=== PATIENT | female | born 1990 | race Caucasian/White ===

== ENCOUNTER 2025-04-07 16:09 | Emergency (ER) | payer OTHER, SELFPAY ==
--- OUTSIDE RECORDS SUMMARY | 2025-04-07 16:13 | XMS_ITS | Clinical Summary ---
Author Organization [facility] Address [address] [place] [address] Care Team Providers Care Special Systems Technician Name Role Phone Aniya Tilley MD Primary Care Provider + Allergies No known active allergies Medications traZODone (DESYREL) 100 MG tabletIndicatio ns:CLAUDIA (generalized anxiety disorder) Take 1 tablet (100 mg total) by mouth nightly at bedtime. 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 90 capsule 5 03/16/20 25 Discontinu ed(Reorder ) traZODone (DESYREL) 50 MG tablet Take 1 tablet (50 mg total) by mouth nightly at bedtime. at bedtime 5 03/16/20 25 Discontinu ed(Reorder ) Active Problems Problem Noted Date Diagnosed Date No blood products 01/15/2025 Overview (01/15/2025): [place]. Declines blood products. CLAUDIA (generalized anxiety disorder) 01/15/2025 Overview (01/15/2025): - Acknowledges symptoms of depression and anxiety, including thoughts of self- harm, but does not intend to harm herself - Reports significant social anxiety - Has not explored counseling options - Spends considerable time on social media - Experienced sleep disturbances for several years, worsening over the past year - Difficulties in coping, focusing, and performing daily activities - Reports decreased physical strength, frustrating given her active lifestyle - Uncertain if these issues are solely due to sleep problems or other causes - Tried ijhw-rji-tblpswd remedies like melatonin and Tylenol PM with varying success; melatonin is hit or miss, and Tylenol PM causes next-day grogginess Assessment & Plan (03/16/2025 8:22 AM RN DIABETES): Improved. - CLAUDIA score decreased from 15 to 11. - Continue venlafaxine at 75 mg. Report side effects. Assessment & Plan (01/15/2025 2:01 PM CDT): Significant. - CLAUDIA score 15. - see plan for depression Current severe episode of ma [place]sey depressive disorder without psychotic features without prior episode 01/15/2025 Overview (03/16/2025): Seen 01/2025 and started venlafaxine, trazodone due to symptoms of depression and anxiety, including thoughts of self-harm, but does not intend to harm herself. Self harm thoughts resolved. Still some anxiety but improved. Assessment & Plan (03/16/2025 8:22 AM RN DIABETES): Improved. - PHQ-9 score improved from 20 to 10. - Increased venlafaxine to 75 mg - Prescription sent. Report side effects. Assessment & Plan (01/15/2025 2:00 PM CDT): Significant. - PHQ-9 score 20, thoughts of self-harm but no intent. - Provide list of counseling centers. - Advise checking for EAP at work. - Emphasize reducing screen time and engaging in hobbies. - Initiate trazodone first to help with sleep, then add venlafaxine, discuss potential side effects (weight changes, libido alterations, GI effects). Encounters Date Type Department Care Team Description 03/24/2025 Results Follow-Up [address] [address] Aniya Tilley MD CBC W/DIFF, VITAMIN D, 25 OH, VITAMIN B-12, IRON SAT PANEL (IRON,IBC,%SAT) 03/16/2025 7:30 AM RN DIABETES Office Visit [address] [address] Aniya Tilley MD Follow Up (F/u on depression and anxiety. She is still feeling fatigue. ) 03/16/2025 Travel 01/15/2025 1:20 PM CDT Office Visit [address] [address] Aniya Tilley MD New Patient (Here to get established. Pt never had a pap. Doesn't have gynecological assistant. ); Sleep Problem (Having some issues with sleeping. ) 01/15/2025 Travel from Last 3 Months Immunizations Immunization Administration Dates Next Due Dtp/Hib (Tetramune) 11/23/1993 Fluzone (IIV3, Trivalent, 0.5 ML Prefilled Syrin ) 01/15/2025 MMR (MMRII) 11/23/1993 PFIZER COVID-19 (ORIGINAL FO RMULATION, PURPLE CAP) mRNA, LNP-S, PF, 30 MCG/0.3 ML DOSE 08/05/2020 Polio Opv (Generic) 11/23/1993 Tdap (Adacel) 01/15/2025 Family History Medical History Relation Comments No Known Problems Brother Hypertension Father Diabetes Mother Hypertension Mother Breast Cancer Paternal Grandmother and gallbla dder cancer Relation Status Comments Brother Alive Father Alive Mother Alive Paternal Grandmother Social History Tobacco Use Types Packs/Day Years Used Date Smoking Tobacco: Never Passive Smoke Exposure: Never Smokeless Tobacco: Never Tobacco Cessation:Counseling Given: No Alcohol Use Standard Drinks/Week Comments Yes 5 (1 standard drink = 0.6 oz pur e alcohol) occ PHQ-2 Answer Date Recorded Patient Health Questionnaire-2 Score 2 03/16/2025 Comments Unknown Sex and Gender Information Value Date Recorded Sex Assigned at Not on file Legal Sex Female 6:51 PM CDT Gender Identity Not on file Sexual Orientation Not on file Last Filed Vital Signs Vital Sign Reading Time Taken Comments Blood Pressure 128/86 03/16/2025 7:27 AM RN DIABETES Pulse 83 03/16/2025 7:27 AM RN DIABETES Temperature 36.4 C (97.6 F) 03/16/2025 7:27 AM RN DIABETES Respiratory Rate - - Oxygen Saturation 98% 03/16/2025 7:27 AM RN DIABETES Inhaled Oxygen Concentration - - Weight 67.7 kg (149 lb 3.2 oz) 03/16/2025 7:27 A M RN DIABETES Height 156.2 cm (5' 1.5) 03/16/2025 7:27 AM RN DIABETES Body Mass Index 27.73 03/16/2025 7:27 AM RN DIABETES Plan of Treatment Upcoming Encounters Date Type Department Care Team (Late st Contact Info) Description 02/05/2026 7:30 AM CDT Office Visit [facility] - [place] [address] [facility] [address] [place] [address] Aniya Tilley MD [address] [place] [address] Health Maintenance Due Date Last Done Comments Cervical Cancer Screening Pap Smear (Age 30 to 64) Every 3 Years 1992 Hepatitis C 2010 Hepatitis B Vaccines (1 of 3 - 19+ 3-dose series) 08/19/2011 HPV Vaccines (1 - 3-dose SCDM series) 08/19/2019 Cervical Cancer Screening Pap with HPV Testing (Age 30 to 64) Every 5 Years 2022 Cervical Cancer Screening with HPV 2022 COVID-19 Vaccine ( season) 2024 01/11/2022, 03/08/2021, 08/05/2020, Additional history exists Annual Physical 01/15/2026 01/15/2025 DTaP, Tdap and Td Vaccines (2 - Td or Tdap) 01/15/2035 01/15/2025, 11/23/1993 Influenza Adult Completed 01/15/2025 PHQ-2 (Physician [place]) Completed 03/16/2025 Hepatitis A Vaccines Aged Out No long er eligible based on patient's age to complete this topic Meningococcal B Vaccine Aged Out No l onger eligible based on patient's age to complete this topic Meningococcal Vaccine Aged Out No beverley manasa eligible based on patient's age to complete this topic Pneumococcal Vaccine: Pediatrics (0 to 5 Years) and At-Risk Patients (6 to 49 Years) Aged Out No longer eligible based on patient's age to complete this topic RSV Immunizations Under 20 Months Aged Out No longer eligible based on patient's age to complete this topic Procedures Procedure Name Priority Date/Time Associated Diagnosis Comments VITAMIN B-12 Today 03/21/2025 12:08 PM RN DIABETES Other fatigue IRON SAT PANEL (IRON,IBC,%SAT) Routine 03/21/2025 12:07 PM RN DIABETES Other fatigue VITAMIN D, 25 OH Routine 03/21/2025 12:0 7 PM RN DIABETES Other fatigue CBC W/DIFF Routine 03/21/2025 12:07 PM RN DIABETES Other fatigue THYROXINE, FREE (FT4) Routine 01/21/2025 6:35 AM CDT Routine general medical examination at a health care facility THYROID STIM HORMONE TSH Today 01/21/2025 6:35 AM CDT Routine general medical examination at a health care facility LIPID PANEL Today 01/21/2025 6:35 AM CDT Routine general medical examination at a health care facility HEMOGLOBIN, GLYCOSYLATED Today 01/21/2025 6:35 AM CDT Routine general medical examination at a health care facility from Last 3 Months Results * VITAMIN B-12 (03/21/2025 12:08 PM RN DIABETES) Pathologist [facility] VITAMIN B12 S/P/B 499 200 - 1,100 pg/mL [facility] BLOOD VENOUS BLOOD SPECIMEN / Unknown 03/21/2025 12:08 PM RN DIABETES 03/21/2025 12:09 PM RN DIABETES Narrative [facility] EUGENE ORDERS - 03/22/2025 5:53 AM RN DIABETES FASTING:NO FASTING: NO Resulting Agency Comment Performing Organization Information: Site ID: [id number] Name: [employer] Address: [address] [place] [address] Director: Marie Silva MD us Aniya Tilley MD LABORATORY Final Re sult [facility]AN[facility] [id number] [place] [id number], * VITAMIN D, 25 OH (03/21/2025 12:07 PM RN DIABETES) Pathologist [facility] VITAMIN D 25 HYDROXY TOTAL S/P/B 31 30 - 100 ng/mL [facility] Comment: Vitamin D Status 25-OH Vitamin D: Deficiency: <20 ng/mL Insufficiency: 20 - 29 ng/mL Optimal: > or = 30 ng/mL For 25-OH Vitamin D testing on patients on D2-supplementation and patients for whom quantitation of D2 and D3 fractions is required, the QuestAssureD(TM) 25-OH VIT D, (D2,D3), LC/MS/MS is recommended: order code 66025 (patients >2yrs). See Note 1 Note 1 For additional information, please refer to http://education.PixelFlow/faq/DYX122 (This link is being provided for informational/ educational purposes only.) BLOOD VENOUS BLOOD SPECIMEN / Unknown 03/21/2025 12:07 PM RN DIABETES 03/21/2025 12:08 PM RN DIABETES Narrative [facility] - VALORIE ORDERS - 03/22/2025 8:49 AM RN DIABETES FASTING:NO FASTING: NO Resulting Agency Comment Performing Organization Information: Site ID: BOBBY Name: [employer] Address: [address] [place] [phone] Director: Marie Silva MD Aniya Tilley MD LABORATORY Final Re sult Performing Organization Address [facility] Co de Phone Number [facility] TANVIR - [place]IE [address] [address], * IRON SAT PANEL (IRON,IBC,%SAT) (03/21/2025 12:07 PM RN DIABETES) [facility] IRON 97 40 - 190 mcg/dL [facility] IRON BINDING CAPACITY 398 250 - 450 mcg/dL (calc) [facility] % IRON SATURATION 24 16 - 45 % (calc) [facility] BLOOD VENOUS BLOOD SPECIMEN / Unknown 03/21/2025 12:07 PM RN DIABETES 03/21/2025 12:08 PM RN DIABETES Narrative [facility] ORDERS - 03/22/2025 8:49 AM RN DIABETES FASTING:NO FASTING: NO Resulting Agency Comment Performing Organization Information: Site ID: ND Name: [facility] Address: [address] [place] [phone] Director: Marie Silva MD Aniya Tilley MD LABORATORY Final Re sult Performing Organization Address [facility] de Phone Number [facility] TANVIR [address] [address], * CBC W/DIFF (03/21/2025 12:07 PM RN DIABETES) [facility] WBC 10.8 3.8 - 10.8 Thousand/u L [facility] RBC 4.40 3.80 - 5.10 Million/uL Flo[facility] HGB 13.1 11.7 - 15.5 g/dL [facility] [place] HCT 41.1 35.9 - 46.0 % [facility] [place] MCV 93.4 81.4 - 101.7 fL [facility] MCH 29.8 27.0 - 33.0 pg [facility] MCHC 31.9 31.6 - 35.4 g/dL [facility] RDW 12.3 11.0 - 15.0 % [facility] [place] [address] 316 140 - 400 Thousand/u L [facility] [place] MPV 10.4 7.5 - 12.5 fL [facility] ABS. NEUTROPHILS 6,620 1,500 - 7,800 cells/uL [facility] ABS. LYMPHOCYTES 3,197 850 - 3,900 cells/uL [facility] ABS. MONOCYTES 810 200 - 950 cells/uL [facility] ABS. EOSINOPHILS 76 15 - 500 cells/uL [facility] ABS. BASOPHILS 97 0 - 200 cells/uL [facility] SEG NEUTROPHILS 61.3 % [facility] LYMPHOCYTES 29.6 % [facility] [place] MONOCYTES 7.5 % [facility] EOSINOPHILS 0.7 % [facility] [place] BASOPHILS 0.9 % [facility] BLOOD VENOUS BLOOD SPECIMEN / Unknown 03/21/2025 12:07 PM RN DIABETES 03/21/2025 12:08 PM RN DIABETES Narrative [facility] - [place]ORIE ORDERS - 03/22/2025 8:49 AM RN DIABETES FASTING:NO FASTING: NO Resulting Agency Comment Performing Organization Information: Site ID: ND Name: [employer] Address: [address] [place] [phone] Director: Marie Silva MD Aniya Tilley MD LABORATORY Final Re sult [facility] - [place] ORDERS [address] [address], [place] * HEMOGLOBIN, GLYCOSYLATED (01/21/2025 6:35 AM CDT) HGB A1C 5.2 <5.7 % of total Hgb [facility] [place] Comment: For the purpose of screening for the presence of diabetes: <5.7% Consistent with the absence of diabetes 5.7-6.4% Consistent with increased risk for diabetes (prediabetes) > or =6.5% Consistent with diabetes This assay result is consistent with a decreased risk of diabetes. Currently, no consensus exists regarding use of hemoglobin A1c for diagnosis of diabetes in children. According to [place] Diabetes Association (ADA) guidelines, hemoglobin A1c <7.0% represents optimal control in non- diabetic patients. Different metrics may apply to specific patient populations. Standards of Medical Care in Diabetes(ADA). 01/21/2025 6:35 AM CDT 01/21/2025 6:36 AM CDT Narrative Resulting Agency Comment Performing Organization Information: Site ID: SL Name: [facility] Address: [address] [place] [address] Director: Marie Silva us Aniya Tilley MD LABORATORY Final Re sult [facility]ST[facility] - [place] ORDERS [facility] [place], [place] [address] [place] [address], * (ABNORMAL) LIPID PANEL (01/21/2025 6:35 AM CDT) CHOLESTEROL 207(H) <200 mg/dL [facility] HDL 56 > OR = 50 mg/dL [facility] TRIGLYCERIDES 69 <150 mg/dL [facility] LDL (CALCULATED) 135(H) mg/dL (calc) [facility] Comment: Reference range: <100 Desirable range <100 mg/dL for primary prevention; <70 mg/dL for patients with CHD or diabetic patients with > or = 2 CHD risk factors. LDL-C is now calculated using the Harpal-Gamboa calculation, which is a validated novel method providing better accuracy than the Friedewald equation in the estimation of LDL-C. Harpal SS et al. BERTHA. 2013;310(19): 2784-9591 (http://education.Bambisa.Dealstreet/faq/CJX180) CHOL/HDL RATIO 3.7 <5.0 (calc) [facility] NON HDL CHOLESTEROL 151(H) <130 mg/dL (calc) [facility] Comment: For patients with diabetes plus 1 major ASCVD risk factor, treating to a non-HDL-C goal of <100 mg/dL (LDL-C of <70 mg/dL) is considered a therapeutic option. 01/21/2025 6:35 AM CDT 01/21/2025 6:36 AM CDT Narrative Resulting Agency Comment Performing Organization Information: Site ID: BOBBY Name: [employer] Address: [address] [place] [phone] Director: Marie Silva MD Aniya Tilley MD LABORATORY Final Re sult Performing Organization Address [facility] Co de Phone Number [facility]ST[facility] - [place] ORDERS [facility] [address] [address], * THYROXINE, FREE (FT4) (01/21/2025 6:35 AM CDT) FREE T4 1.2 0.8 - 1.8 ng/dL [facility]ST[facility] 01/21/2025 6:35 AM CDT 01/21/2025 6:36 AM CDT Narrative Resulting Agency Comment Performing Organization Information: Site ID: BOBBY Name: [facility] Address: [address] [place] [phone] Director: Marie Silva MD us Aniya Tilley MD LABORATORY Final Re sult Performing Organization Address [facility] Co de Phone Number [facility]ST[facility] - [place] ORDERS [facility] [address] [address], [place] * THYROID STIM HORMONE TSH (01/21/2025 6:35 AM CDT) TSH 2.91 mIU/L [facility] Comment: Reference Range > or = 20 Years 0.40-4.50 Ranges First trimester 0.26-2.66 Second trimester 0.55-2.73 Third trimester 0.43-2.91 01/21/2025 6:35 AM CDT 01/21/2025 6:36 AM CDT Narrative Resulting Agency Comment Performing Organization Information: Site ID: BOBBY Name: [employer] Address: [address] [place] [phone] Director: Marie Silva MD Aniya Tilley MD LABORATORY Final Re sult [facility] - [place] ORDERS [facility] [address] [place] [address], [place] from Last 3 Months Insurance [employer] Care Teams Special Systems Technician Relationship Specialty Start Date End Date Aniya Tilley MD [address] [place] [phone] PCP - General FAMILY PRACTICE 01/15/25
--- OUTSIDE RECORDS SUMMARY | 2025-04-07 16:19 | XMS_ITS | Encounter Summary ---
Author Organization [facility] Address [facility] [place] [address] Care Team Providers Care Table Games Shift Manager Name Role Phone Aniya Tilley MD Primary Care Provider + Encounter Details Date Type Department Care Team (Late st Contact Info) Description 03/24/2025 Results Follow-Up [address] [place] [phone] Aniya Tilley MD [address] [place] [phone] CBC W/DIFF, VITAMIN D, 25 OH, VITAMIN B-12, IRON SAT PANEL (IRON,IBC,%SAT) Social History Tobacco Use Types Packs/Day Years Used Date Smoking Tobacco: Never Passive Smoke Exposure: Never Smokeless Tobacco: Never Alcohol Use Standard Drinks/Week Comments Yes 5 (1 standard drink = 0.6 oz pur e alcohol) occ PHQ-2 Answer Date Recorded Patient Health Questionnaire-2 Score 2 03/16/2025 Comments Unknown Sex and Gender Information Value Date Recorded Sex Assigned at Not on file Legal Sex Female 6:51 PM CDT Gender Identity Not on file Sexual Orientation Not on file documented as of this encounter Plan of Treatment Upcoming Encounters Date Type Department Care Team (Late st Contact Info) Description 02/05/2026 7:30 AM CDT Office Visit [facility] [address] [facility] [address] [place] [phone] Aniya Tilley MD [address] [place] [address] documented as of this encounter Visit Diagnoses Not on filedocumented in this encounter Additional Health Concerns Assessment Noted Time PHQ-9 Depression Total Score: 10 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
[2025-04-07 16:24] VITALS: BP 133/86; PULSE 83; RESP 16; TEMP 36.4; O2SAT 100
[2025-04-07 16:52] LABS: EDUAAPPEAR Clear; EDUABILI Negative (Negative); EDUABLOOD Trace (Negative); EDUACOLOR1 Yellow; EDUAGLUCOSE Negative (Negative); EDUAKETONE Negative (Negative); EDUALEUKO Negative (Negative); EDUANITRATE Negative (Negative); EDUAPH 6.5; EDUAPROTEIN Negative (Negative); EDUASPGRAVITY 1.010; EDUAUROBILI 0.2
--- NOTE | 2025-04-07 17:00 | ED_ITS ---
HPI - General Adult General Chief complaint: Urogenital-Female Stated complaint: UTI Source: patient Mode of arrival: ambulatory Limitations: no limitations History of Present Illness HPI narrative: Patient presents for evaluation of urinary symptoms for last 4 days. Symptoms include urinary frequency, urgency, hesitancy and dysuria. She denies any fever, chills, abdominal pain, low back pain, vaginal bleeding/discharge. She has had urinary tract infections in the past and this feels similar. She is not sexually active. She is not on contraception. She is at the end of her menstrual cycle. Related Data Home Medications ?Medication ?Instructions ?Recorded ?Confirmed ?Last Taken ?Type trazodone 100 mg tablet mg 04/07/25 Unknown History venlafaxine 75 mg capsule,extended mg PO 04/07/25 Unk nown History release 24 hr Allergies Allergy/AdvReac Type Severity Reaction Status Date / Time No Known Allergies Allergy Verified 04/07/25 16:18 Review of Systems Review of Systems: CONSTITUTIONAL: Denies fever, chills, or sweats. EYES: Denies visual changes, redness, or discharge. ENT: Denies rhinorrhea, congestion, sore throat, or otalgia. CARDIOVASCULAR: Denies chest pain, palpitations, or edema. RESPIRATORY: Denies cough or dyspnea. GASTROINTESTINAL: Denies abdominal pain, nausea, vomiting, or diarrhea. GENITOURINARY: Reports urinary frequency, hesitancy and dysuria. denies vaginal bleeding or discharge SKIN: Denies rash or itching. MUSCULOSKELETAL: Denies back pain, joint pain, or myalgia. NEUROLOGIC: Denies headache, numbness, dizziness, or weakness. PSYCHIATRIC: Denies anxiety or depression. [facility] Past Medical History Medical History Depression Surgical History Surgical History No pertinent past surgical history Family History Family History Grandparent Family history of malignant neoplasm Family history of malignant neoplasm of breast Mother Family history of type 2 diabetes mellitus Social History Social History Smoking status: Never smoker Alcohol intake: current Gender identity (if verbalized by the patient): Female Exam Narrative: GENERAL: Well-appearing, well-nourished, and in no acute distress. HEAD: Normocephalic, atraumatic. EYES: PERRLA and EOMI. ENT: Nares clear, no rhinorrhea or epistaxis. Mucous membranes moist. Oropharynx without tonsillar hypertrophy exudate or other lesions. Bilateral TMs pearly garcia nonbulging NECK: Supple. No adenopathy or masses. No carotid bruits or JVD CHEST: Clear to auscultation. No respiratory distress. No wheezes rales or rhonchi HEART: Regular rate and rhythm. No murmur heard. Normal peripheral pulses. ABDOMEN: Soft, nontender, nondistended, normal active bowel sounds. EXTREMITIES: Normal range of motion. No edema. SKIN: Warm, dry, no rash. NEURO: No focal deficits. Alert and oriented x3. PSYCH: Normal mood and affect. Course Course Emergency Course: this is a 34-year-old female who presented for evaluation of urinary symptoms primary consideration was urinary tract infection. She did not have any markers of UTI in her urine dipstick today however her symptoms are classic. She has no vaginal discharge to suggest vaginal infection. Furthermore, she is not sexually active. She has no flank pain or abdominal pain to suggest kidney stone. Will send urine culture. Through shared decision making opted to proceed with antibiotic therapy. Will discharge with cephalexin. Follow up with primary provider. Go to the ER for worsening symptoms. Pt in agreeement with plan of care. Level of Care: Express Care Visit Vital Signs Vital signs: Vital Signs Temperature 36.4 C L 04/07/25 16:24 Pulse Rate 83 04/07/25 16:24 Respiratory Rate 16 04/07/25 16:24 Blood Pressure 133/86 04/07/25 16:24 Pulse Oximetry 100 04/07/25 16:24 Oxygen Delivery Room Air 04/07/25 16:24 Temperature 36.4 C L 04/07/25 16:24 Pulse Rate 83 04/07/25 16:24 Respiratory Rate 16 04/07/25 16:24 Blood Pressure 133/86 04/07/25 16:24 Pulse Oximetry 100 04/07/25 16:24 Oxygen Delivery Room Air 04/07/25 16:24 MDM Differential Diagnosis Differential Diagnosis: UTI verses kidney stone versus interstitial cystitis versus urinary stricture versus other Lab Data Labs: Lab Results 04/07/25 Range/Units 16:38 POC Urine Color Yellow POC Urine Clarity Clear POC Urine pH 6.5 POC Ur Specif [place] 1.010 POC Urine Protein Negative (Negative) POC Ur Glucose (UA) Negative (Negative) POC Urine Ketones Negative (Negative) POC Urine Blood Trace (Negative) POC Urine Nitrite Negative (Negative) POC Urine Bilirubin Negative (Negative) POC Urine Urobilinogen 0.2 POC U Leukocyte Esteras Negative (Negative) Discharge Plan Discharge Clinical Impression: Lower urinary tract symptoms Patient Disposition: Home Condition: Stable Instructions: Antibiotic Form, Dysuria (ED) Patient Language: Macedonian Prescriptions: New cephalexin 500 mg capsule 500 mg PO Q12H Qty: 14 0RF No Action venlafaxine 75 mg capsule,extended release 24hr PO trazodone 100 mg tablet Follow-up/Referrals: Treva,Aniya Regalado MD [Primary Care Provider, Unknown] Time of Disposition: 16:58
== END 2025-04-07 17:02 | disposition home or self-care (01) ==
PROVIDERS: Emergency Provider Nurse Practitioner; PCP Student in an Organized Health Care Education/Training Program
DX: R35.0 Frequency of micturition (principal); R39.15 Urgency of urination; R30.0 Dysuria; F32.A Depression, unspecified
CPT/HCPCS: 81003; 82948; 87086; 99213; G0463